=== PATIENT | male | born 1980 | race Caucasian/White ===

== ENCOUNTER 2020-09-19 07:51 | Emergency (ER) | payer OTHER, SELFPAY ==
[2020-09-19 08:07] VITALS: BP 150/83; PULSE 88; RESP 18; TEMP 36.5; O2SAT 99
--- NOTE | 2020-09-19 08:15 | PCDIET ---
[facility] CONTACTED FOR PLASTICS CONSULT.
--- NOTE | 2020-09-19 08:22 | ED.WOUNDLAC ---
HPI - Wound/Laceration General Chief Complaint: Wound/Laceration Stated Complaint: Mouth Time Seen by Provider: 09/19/20 08:05 Source: patient and family Mode of arrival: ambulatory Limitations: no limitations History of Present Illness HPI narrative: This young man comes in after having a steel pipe roll off a rack and hit him in the left upper lip. He has an area of that lip, at the border of the lip about 1 inch long that is smashed. He also has a laceration through both sides of the lip. His number 7 tooth is broken off below that area. Onset (ago): minute(s) Context: accidental Associated symptoms: none Related Data Home Medications Medication Instructions Recorded Confirmed No Home Medications 09/19/20 09/19/20 Allergies Allergy/AdvReac Type Severity Reaction Status Date / Time No Known Allergies Allergy Mild Unverified 09/24/08 10:52 Review of Systems Constitutional: Constitutional: Reports no additional constitutional complaints Eyes: Eyes: Reports no additional eye complaints ENT: Reports system reviewed and no additional complaints, except as documented Comments: No pain in left upper jaw area. Cardiovascular: Cardiovascular: Reports no additional cardiovascular complaints Respiratory: Respiratory: Reports no additional respiratory complaints Gastrointestinal: Gastrointestinal: Reports no additional gastrointestinal complaints Genitourinary: Genitourinary: Reports no additional male genitourinary complaints Musculoskeletal: Musculoskeletal: Reports no additional musculoskeletal complaints Integumentary/Breasts: Skin/Breast: Reports system reviewed and no additional complaints, except as docu Neurologic: Reports system reviewed and no additional complaints, except as documented Psychiatric: Psychiatric: Reports no additional psychiatric complaints Endocrine: Endocrine: Reports no additional endocrine complaints Hematologic/Lymphatic: Hematologic/Lymphatic: Reports no additional hematologic/lymphatic complaints Allergic/Immunologic: Allergic/Immunologic: Reports no additional allergic/immunologic complaints PMFSH Past Medical History Medical History (Updated 09/19/20 @ 08:37 by Nicola Whitman MD) No significant medical problems Surgical History Surgical History (Updated 09/19/20 @ 08:37 by Nicola Whitman MD) No significant past surgical history Family History Family History (Updated 09/19/20 @ 08:38 by Nicola Whitman MD) Mother Diabetes mellitus Social History Social History (Updated 09/19/20 @ 08:39 by Nicola Whitman MD) Social History: smoker Smoking status: Current every day smoker Tobacco type: cigarettes Additional smoking assessment comments: 1 PPD Alcohol intake: current Alcohol use details: minimal Exam Const: General: no acute distress Orientation/consciousness: patient oriented x3 HENMT: Other: Laceration left upper lip. This is about 1 inch long with laceration through both sides of the lip. The #7 tooth under his area has been broken off. Facial bones do not appear tender at all under laceration area and near lacerated area. Eyes: Conjunctivae: conjunctivae normal Neck: Neck: normal visual inspection Other: He can move his neck through range of motion without pain, neck is clear and obviously not injured. Chest: Chest palpation & inspection: normal inspection of the chest Resp: Auscultation: clear to auscultation bilaterally Cardio: Rate: regular rate Rhythm: regular rhythm GI: GI Palp: Yes Soft to palpation (nontender) Skin: General skin exam: normal color Neuro: General: patient oriented x3 and moves all extremities Extrem: General: normal to inspection Psych: Appearance: grossly normal Mental Status: mental status grossly normal Course Course Emergency Course: I spoke with Dr Mott, plastic surgeon, at [facility] who agreed to take him for surgical repair at 8:12 am. I spoke with Dr Valero
--- NOTE | 2020-09-19 08:28 | PC.NURSE ---
PT ACCEPTED BY DR GOODWIN WITH PLASTICS TO BE EVALUATED IN THE ED. PT TO GO DIRECTLY TO ED BY PRIVATE VEHICLE. PT AWAITING FOR RIDE FROM FATHER. RN TO RN REPORT TO EDDA.
[2020-09-19] MEDS: ONDANSETRON HCL ODT 4 MG TABLET PO (08:34)
[2020-09-19] MEDS: HYDROmorphone HCL INJ (*CRX) 2 MG/ML VIAL 1 MG IM (08:35)
[2020-09-19 09:20] VITALS: BP 124/83; PULSE 87; RESP 18; O2SAT 99
== END 2020-09-19 09:20 | disposition short-term general hospital (02) ==
PROVIDERS: Emergency Provider Emergency Medicine
DX: S01.511A Laceration without foreign body of lip, initial encounter (principal); W22.8XXA Striking against or struck by other objects, initial encounter
CPT/HCPCS: 96372; 99283; A9270; J1170